=== PATIENT | female | born 1990 | race Caucasian/White ===

== ENCOUNTER 2017-05-01 03:23 | Emergency (ER) | payer BC ==
[2017-05-01] MEDS ORDERED: Simethicone 80 MG Tab.Chew PO ONE (03:59)
[2017-05-01] MEDS ORDERED: Ondansetron 4 MG/2 ML SDV IVPUSH ONE (04:09)
[2017-05-01] MEDS ORDERED: Sodium Chloride 0.9% 1,000 ML IV SCH (04:15)
--- NOTE | 2017-05-01 05:54 | EDM.PDOC ---
ED HPI GENERAL MEDICAL PROBLEM - General Chief Complaint: Abdominal Pain Stated Complaint: NOT FEELING WELL Time Seen by Provider: 05/01/17 03:52 Source of Information: Reports: Patient History Limitations: Reports: No Limitations - History of Present Illness INITIAL COMMENTS - FREE TEXT/NARRATIVE: abdominal bloating; this is a 26 year old female presents to ER for evaluation of symptoms. reports was on training for two days, was eating out the past two days, about 24 hours ago develops abdominal pain, bloating and foul burps. rates pain at 5. having diarrhea stools, vomited x 2 in the past 24 hours. denies any fever, chills, dysuria, cough,chest pain or shortness of breath. last menses 04/04/17 Onset: Gradual Duration: Hour(s): (24 hours), Constant Location: Reports: Abdomen Quality: Reports: Ache, Pressure Severity: Moderate (rate pain at 5) Worsens with: Reports: None Associated Symptoms: Reports: Nausea/Vomiting (vomited two times in the last 24 hours) upper abd Pain Score (Numeric/FACES): 4 - Related Data Allergies Allergy/AdvReac Type Severity Reaction Status Date / Time Sulfa (Sulfonamide Allergy Other Verified 05/01/17 03:39 Antibiotics) Home Meds: Home Meds Lisdexamfetamine Dimesylate [Vyvanse] 40 mg PO DAILY 05/01/17 [History] Sertraline [Zoloft] 50 mg PO DAILY 05/01/17 [History] Past Medical History Respiratory History: Reports: Asthma Gastrointestinal History: Reports: GERD Psychiatric History: Reports: ADHD, Anxiety, Depression Endocrine/Metabolic History: Reports: Obesity/BMI 30+ - Past Surgical History HEENT Surgical History: Reports: Other (See Below) Other HEENT Surgeries/Procedures: left ear surgery Social & Family History - Tobacco Use Smoking Status *Q: Never Smoker - Caffeine Use Caffeine Use: Reports: None - Recreational Drug Use Recreational Drug Use: No ED ROS GENERAL - Review of Systems Review Of Systems: See Below Constitutional: Reports: Malaise, Decreased Appetite HEENT: Reports: No Symptoms Respiratory: Reports: No Symptoms Cardiovascular: Reports: No Symptoms Endocrine: Reports: No Symptoms GI/Abdominal: Reports: Abdominal Pain, Diarrhea, Distension, Nausea, Vomiting : Reports: No Symptoms Musculoskeletal: Reports: No Symptoms Skin: Reports: No Symptoms Neurological: Reports: No Symptoms Psychiatric: Reports: No Symptoms Hematologic/Lymphatic: Reports: No Symptoms Immunologic: Reports: No Symptoms ED EXAM, GENERAL - Physical Exam Exam: See Below Exam Limited By: No Limitations General Appearance: Alert, WD/WN, Mild Distress Eye Exam: Bilateral Eye: PERRL Ears: Normal External Exam, Normal Canal, Hearing Grossly Normal, Normal TMs Ear Exam: Bilateral Ear: Auricle Normal, Canal Normal, TM normal Nose: Normal Inspection, Normal Mucosa, No Blood Throat/Mouth: Normal Inspection, Normal Lips, Normal Teeth, Normal Gums, Normal Oropharynx, Normal Voice, No Airway Compromise Head: Atraumatic, Normocephalic Neck: Normal Inspection, Supple, Non-Tender, Full Range of Motion Respiratory/Chest: No Respiratory Distress, Lungs Clear, Normal Breath Sounds, No Accessory Muscle Use, Chest Non-Tender Cardiovascular: Normal Peripheral Pulses, Regular Rate, Rhythm, No Edema, No Gallop, No JVD, No Murmur, No Rub Peripheral Pulses: 2+: Radial (L), Radial (R), Dorsalis Pedis (L), Dorsalis Pedis (R) GI/Abdominal: Distended, Abnormal Bowel Sounds (hypoactive) (Female) Exam: Deferred Rectal (Female) Exam: Deferred Extremities: Normal Inspection, Normal Range of Motion, Non-Tender, Normal Capillary Refill, No Pedal Edema Neurological: Alert, Oriented, CN II-XII Intact, Normal Cognition, Normal Gait, Normal Reflexes, No Motor/Sensory Deficits Psychiatric: Normal Affect, Normal Mood Lymphatic: No Adenopathy Course - Vital Signs Last Recorded V/S: Last Vital Signs Temp 36.4 C 05/01/17 06:31 Pulse 88 05/01/17 06:31 Resp 15 05/01/17 06:31 BP 133/82 05/01/17 06:31 Pulse Ox 99 05/01/17 06:31 - Orders/Labs/Meds Orders: Active Orders 24 hr Category Date Time Status Abdomen 2V AP Flat Upright [CR] Urgent Exams 05/01/17 03:53 Taken Abdomen Pelvis w Cont [CT] Stat Exams 05/01/17 05:54 Taken Sodium Chloride 0.9% [Normal Saline] 1,000 ml Med 05/01/17 04:15 Active IV ASDIRECTED Medication Orders Sodium Chloride (Normal Saline) 1,000 mls @ 999 mls/hr IV ASDIRECTED CHITRA Last Admin: 05/01/17 04:34 Dose: 999 mls/hr Labs: Laboratory Tests 05/01/17 05/01/17 05/01/17 Range/Units 04:04 04:04 04:04 WBC (4.5-11.0) K/uL RBC (3.30-5.50) M/uL Hgb (12.0-15.0) g/dL Hct (36.0-48.0) % MCV (80-98) fL MCH (27-31) pg MCHC (32-36) % Plt Count (150-400) K/uL Neut % (Auto) (36-66) % Lymph % (Auto) (24-44) % [place] % (Auto) (2-6) % Eos % (Auto) (2-4) % Baso % (Auto) (0-1) % Sodium (140-148) mmol/L Potassium (3.6-5.2) mmol/L Chloride (100-108) mmol/L Carbon Dioxide (21-32) mmol/L Anion Gap (5.0-14.0) mmol/L BUN (7-18) mg/dL Creatinine (0.6-1.0) mg/dL Est Cr Clr Drug Dosing mL/min Estimated GFR (MDRD) (>60) Glucose (74-106) mg/dL Calcium (8.5-10.1) mg/dL Total Bilirubin (0.2-1.0) mg/dL AST (15-37) U/L ALT (12-78) U/L Alkaline Phosphatase (46-116) U/L Total Protein (6.4-8.2) g/dL Albumin (3.4-5.0) g/dL Globulin (2.3-3.5) g/dL Albumin/Globulin Ratio (1.2-2.2) Amylase (25-115) U/L Lipase (73-393) U/L Urine Color Yellow Urine Appearance Slightly cloudy Urine pH 5.0 (4.5-8.0) Ur Specific [place] 1.025 (1.008-1.030) Urine Protein Negative (NEGATIVE) mg/dL Urine Glucose (UA) Normal (NEGATIVE) mg/dL Urine Ketones Negative (NEGATIVE) mg/dL Urine Occult Blood Large (NEGATIVE) Urine Nitrite Negative (NEGATIVE) Urine Bilirubin Negative (NEGATIVE) Urine Urobilinogen Normal (NORMAL) mg/dL Ur Leukocyte Esterase Small (NEGATIVE) Urine RBC 10-20 H (0-5) Urine WBC 0-5 (0-5) Ur Epithelial Cells Many Amorphous Sediment Not seen Urine Bacteria Many Urine Mucus Few Urine HCG, Qual Negative Urine Opiates Screen Negative (NEGATIVE) Ur Oxycodone Screen Negative (NEGATIVE) Urine Methadone Screen Negative (NEGATIVE) Ur Propoxyphene Screen Negative (NEGATIVE) Ur Barbiturates Screen Negative (NEGATIVE) Ur Tricyclics Screen Negative (NEGATIVE) Ur Phencyclidine Scrn Negative (NEGATIVE) Ur Amphetamine Screen Negative (NEGATIVE) U Methamphetamines Scrn Negative (NEGATIVE) Urine MDMA Screen Negative (NEGATIVE) U Benzodiazepines Scrn Negative (NEGATIVE) U Cocaine Metab Screen Negative (NEGATIVE) U Marijuana (THC) Screen Negative (NEGATIVE) 05/01/17 05/01/17 Range/Units 04:15 04:15 WBC 15.7 H (4.5-11.0) K/uL RBC 4.63 (3.30-5.50) M/uL Hgb 13.0 (12.0-15.0) g/dL Hct 40.0 (36.0-48.0) % MCV 86 (80-98) fL MCH 28 (27-31) pg MCHC 33 (32-36) % Plt Count 296 (150-400) K/uL Neut % (Auto) 83 H (36-66) % Lymph % (Auto) 12 L (24-44) % [place] % (Auto) 5 (2-6) % Eos % (Auto) 1 L (2-4) % Baso % (Auto) 0 (0-1) % Sodium 142 (140-148) mmol/L Potassium 4.0 (3.6-5.2) mmol/L Chloride 106 (100-108) mmol/L Carbon Dioxide 26 (21-32) mmol/L Anion Gap 10.1 (5.0-14.0) mmol/L BUN 11 (7-18) mg/dL Creatinine 0.6 (0.6-1.0) mg/dL Est Cr Clr Drug Dosing 123.54 mL/min Estimated GFR (MDRD) > 60 (>60) Glucose 113 H (74-106) mg/dL Calcium 8.9 (8.5-10.1) mg/dL Total Bilirubin 0.3 (0.2-1.0) mg/dL AST 17 (15-37) U/L ALT 26 (12-78) U/L Alkaline Phosphatase 84 (46-116) U/L Total Protein 6.7 (6.4-8.2) g/dL Albumin 3.4 (3.4-5.0) g/dL Globulin 3.3 (2.3-3.5) g/dL Albumin/Globulin Ratio 1.0 L (1.2-2.2) Amylase 35 (25-115) U/L Lipase 115 (73-393) U/L Urine Color Urine Appearance Urine pH (4.5-8.0) Ur Specific [place] (1.008-1.030) Urine Protein (NEGATIVE) mg/dL Urine Glucose (UA) (NEGATIVE) mg/dL Urine Ketones (NEGATIVE) mg/dL Urine Occult Blood (NEGATIVE) Urine Nitrite (NEGATIVE) Urine Bilirubin (NEGATIVE) Urine Urobilinogen (NORMAL) mg/dL Ur Leukocyte Esterase (NEGATIVE) Urine RBC (0-5) Urine WBC (0-5) Ur Epithelial Cells Amorphous Sediment Urine Bacteria Urine Mucus Urine HCG, Qual Urine Opiates Screen (NEGATIVE) Ur Oxycodone Screen (NEGATIVE) Urine Methadone Screen (NEGATIVE) Ur Propoxyphene Screen (NEGATIVE) Ur Barbiturates Screen (NEGATIVE) Ur Tricyclics Screen (NEGATIVE) Ur Phencyclidine Scrn (NEGATIVE) Ur Amphetamine Screen (NEGATIVE) U Methamphetamines Scrn (NEGATIVE) Urine MDMA Screen (NEGATIVE) U Benzodiazepines Scrn (NEGATIVE) U Cocaine Metab Screen (NEGATIVE) U Marijuana (THC) Screen (NEGATIVE) Meds: Medications Generic Name Dose Route Start Last Admin Trade Name Freq PRN Reason Stop Dose Admin Sodium Chloride 1,000 mls @ 999 mls/hr 05/01/17 04:15 05/01/17 04:34 Normal Saline IV 999 mls/hr ASDIRECTED CHITRA Administration Discontinued Medications Generic Name Dose Route Start Last Admin Trade Name Freq PRN Reason Stop Dose Admin Sodium Chloride 84 mls @ 4 mls/sec 05/01/17 06:01 05/01/17 06:08 Normal Saline IV 05/01/17 06:02 4 mls/sec ASDIRECTED STA Administration Iopamidol 144 ml 05/01/17 06:00 05/01/17 06:07 Isovue-300 (61%) IV 05/01/17 06:01 150 ml . DIRECTED STA Administration Ondansetron HCl 4 mg 05/01/17 04:09 05/01/17 04:33 Zofran IVPUSH 05/01/17 04:10 4 mg ONETIME ONE Administration Pantoprazole Sodium 40 mg 05/01/17 05:57 05/01/17 06:21 Protonix Iv IVPUSH 05/01/17 05:58 40 mg ONETIME ONE Administration Simethicone 160 mg 05/01/17 03:59 05/01/17 04:23 Simethicone PO 05/01/17 04:00 160 mg ONETIME ONE Administration - Radiology Interpretation Free Text/Narrative:: abdominal flat and upright; large dilated loops of bowel with few air fluid level; concerns for gastroenteritis vs small bowel obstruction vs appy.. order Abdomen-pelvis CT with contrast. CT report; normal appendix, likely inflammatory or reactive in nature. mild lymph node prominence mid and lower right abdominal mesentery. will discharge to home. follow up if worsen. copy of CT given to patient agrees with plan of care - Re-Assessments/Exams Free Text/Narrative Re-Assessment/Exam: 05/01/17 06:00 given one liter of normal saline, zofran, simethecone; mild improvement. Protonix 40mg IV labs; elevated WBC will await results of abdomen-pelvis CT for final diagnosis Ms. Rivera agrees with plan of care. Departure - Departure Time of Disposition: 06:49 Disposition: Home, Self-Care 01 Condition: Good Clinical Impression: Gastroenteritis - Discharge Information Referrals: PCP,None [Primary Care Provider] - Forms: ED Department Discharge Care Plan Goals: gastroenteritis -rest -clear liquids advance as tolerated -phenergan 25mg one by mouth every 8 hours as needed for abdominal symptoms return to ER if symptoms worsen or not improved. - Problem List & Annotations (1) Gastroenteritis SNOMED Code(s): 78452878 Code(s): K52.9 - NONINFECTIVE GASTROENTERITIS AND COLITIS, UNSPECIFIED Status: Acute Priority: High Current Visit: Yes - Problem List Review Problem List Initiated/Reviewed/Updated: Yes - My Orders Last 24 Hours: My Active Orders 05/01/17 03:53 Abdomen 2V AP Flat Upright [CR] Urgent 05/01/17 04:15 Sodium Chloride 0.9% [Normal Saline] 1,000 ml IV ASDIRECTED 05/01/17 05:54 Abdomen Pelvis w Cont [CT] Stat - Assessment/Plan Last 24 Hours: My Active Orders 05/01/17 03:53 Abdomen 2V AP Flat Upright [CR] Urgent 05/01/17 04:15 Sodium Chloride 0.9% [Normal Saline] 1,000 ml IV ASDIRECTED 05/01/17 05:54 Abdomen Pelvis w Cont [CT] Stat Plan: gastroenteritis -rest -clear liquids advance as tolerated -phenergan 25mg one by mouth every 8 hours as needed for abdominal symptoms return to ER if symptoms worsen or not improved.
[2017-05-01] MEDS ORDERED: Pantoprazole 40 MG Vial IVPUSH ONE (05:57)
[2017-05-01] MEDS ORDERED: Iopamidol 612 MG/ML 150 ML Bottle IV STA (06:00)
--- NOTE | 2017-05-01 08:45 | CR ---
There are a few air-fluid levels throughout the large and small bowel. Nonspecific bowel gas pattern. No dilated loops. No free air.
== END 2017-05-01 07:05 | disposition home or self-care (01) ==
LOC: JP.ED 03:23
DX: K52.9 Noninfective gastroenteritis and colitis, unspecified (principal); K21.9 Gastro-esophageal reflux disease without esophagitis; E66.9 Obesity, unspecified; Z88.2 Allergy status to sulfonamides; Z79.899 Other long term (current) drug therapy
CPT/HCPCS: 36415; 74020; 74177; 80053; 80305; 81001; 81025; 82150; 83690; 85025; 96361; 96374; 96375; 99284; A9270; C9113; J2405; J7030; J7040

== ENCOUNTER 2017-10-01 10:52 | Emergency (ER) | payer BC ==
--- NOTE | 2017-10-01 12:06 | EDM.PDOC ---
ED HPI GENERAL MEDICAL PROBLEM - General Chief Complaint: Gastrointestinal Problem Stated Complaint: RECTAL BLEEDING Time Seen by Provider: 10/01/17 11:49 Source of Information: Reports: Patient, Old Records, RN Notes Reviewed History Limitations: Reports: No Limitations - History of Present Illness INITIAL COMMENTS - FREE TEXT/NARRATIVE: 27-year-old female presents to the emergency department today with complaint of bright red blood per rectum, she does have a history of this has been evaluated by gastroenterology underwent colonoscopy in 2016 with biopsies which did not reveal any etiology at that time she had rectal bleeding for about 6 months. This particular event started last night she has no other symptomology at this time. - Related Data Allergies Allergy/AdvReac Type Severity Reaction Status Date / Time Sulfa (Sulfonamide Allergy Other Verified 10/01/17 11:52 Antibiotics) Home Meds: Home Meds Lisdexamfetamine Dimesylate [Vyvanse] 40 mg PO DAILY 05/01/17 [History] Sertraline [Zoloft] 50 mg PO DAILY 05/01/17 [History] Past Medical History Respiratory History: Reports: Asthma Gastrointestinal History: Reports: GERD, Other (See Below) Other Gastrointestinal History: has had bloody stools on and off since age 16 Psychiatric History: Reports: ADHD, Anxiety, Depression Endocrine/Metabolic History: Reports: Obesity/BMI 30+ - Past Surgical History HEENT Surgical History: Reports: Other (See Below) Other HEENT Surgeries/Procedures: left ear surgery GI Surgical History: Reports: Colonoscopy Social & Family History - Tobacco Use Smoking Status *Q: Never Smoker - Caffeine Use Caffeine Use: Reports: None - Recreational Drug Use Recreational Drug Use: No ED ROS GENERAL - Review of Systems Review Of Systems: See Below Constitutional: Reports: No Symptoms HEENT: Reports: No Symptoms Respiratory: Reports: No Symptoms Cardiovascular: Reports: No Symptoms GI/Abdominal: Reports: Bloody Stool : Reports: No Symptoms ED EXAM, GI/ABD - Physical Exam Exam: See Below Text/Narrative:: Rectal exam reveals good sphincter tone I do appreciate a small fissure at the 10 o'clock position it is approximately half centimeter in length it is not actively bleeding Exam Limited By: No Limitations General Appearance: Alert, WD/WN, No Apparent Distress Respiratory/Chest: No Respiratory Distress Course - Vital Signs Last Recorded V/S: Last Vital Signs Temp 97.0 F 10/01/17 11:42 Pulse 83 10/01/17 11:42 Resp 16 10/01/17 11:42 BP 134/86 10/01/17 11:42 Pulse Ox 96 10/01/17 11:42 - Orders/Labs/Meds Labs: Laboratory Tests 10/01/17 Range/Units 12:04 Hgb 13.9 (12.0-15.0) g/dL Departure - Departure Time of Disposition: 12:43 Disposition: Home, Self-Care 01 Condition: Good Clinical Impression: Rectal tear - Discharge Information Referrals: Michelle Grant PA [Primary Care Provider] - Forms: ED Department Discharge Additional Instructions: Please followup with your primary care provider in 3-5 days if not better, please call return to the emergency department with worsening of symptoms. - Assessment/Plan Plan: Assessment Acuity = acute Site and laterality = rectal tear Etiology = unclear etiology Manifestations = bright red blood per rectum Location of injury = Home Lab values = hemoglobin stable 13.9 Plan I did review lab work and findings with her, have her follow-up with primary care in 3-5 days if no improvement and consider another consultation with gastroenterology if bleeding persists This note was dictated using [employer] voice recognition software please call with any questions on syntax or radha.
== END 2017-10-01 12:55 | disposition home or self-care (01) ==
LOC: JP.ED 10:52
DX: S36.63XA Laceration of rectum, initial encounter (principal); K60.2 Anal fissure, unspecified; K62.89 Other specified diseases of anus and rectum; J45.909 Unspecified asthma, uncomplicated; K21.9 Gastro-esophageal reflux disease without esophagitis; F90.9 Attention-deficit hyperactivity disorder, unspecified type; E66.9 Obesity, unspecified; Z88.2 Allergy status to sulfonamides; Z79.899 Other long term (current) drug therapy; X58.XXXA Exposure to other specified factors, initial encounter; Z68.34 Body mass index [BMI] 34.0-34.9, adult
CPT/HCPCS: 36415; 85018; 99284